=== PATIENT | female | born 1995 | race Caucasian/White ===

== ENCOUNTER 2023-06-08 14:14 | Emergency (ER) | payer OTHER, SELFPAY ==
[2023-06-08 14:18] VITALS: BP 117/77
[2023-06-08 14:33] LABS: % Basophils 0.9 % (0-2); % Eosinophils 1.1 % (0-6); % Immature Granulocytes 0.1 % (0-0.5); % Lymphocytes 29.2 % (20.5-51.1); % Monocytes 6.2 % (1.7-9.3); % Neutrophils 62.5 % (42.2-75.2); Absolute Basophils 0.1 10^3/uL (0-0.2); Absolute Eosinophils 0.1 10^3/uL (0-0.7); Absolute Lymphocytes 2.5 10^3/uL (1.2-3.4); Absolute Monocytes 0.5 10^3/uL (0.1-0.6); Absolute Neutrophils 5.3 10^3/uL (1.4-6.5); Hematocrit 37.3 % (37.0-47.0); Hemoglobin 12.6 g/dL (12.0-16.0); Mean Corp Hgb Conc. 33.8 g/dL (33.0-37.0); Mean Corpuscular Hgb 27.8 pg (27.0-31.0); Mean Corpuscular Volume 82.3 fL (81.0-99.0); Mean Platelet Volume 11.7 fL (7.4-10.4); Nucleated Red Blood Cells % 0 %; Platelet Count 280 10^3/uL (130-400); Red Blood Cell Count 4.53 10^6/uL (4.20-5.40); Red Cell Dist. Width 12.7 % (11.5-14.5); White Blood Cell Count 8.6 10^3/uL (4.8-10.8)
[2023-06-08 14:40] LABS: Urine Albumin Trace (Neg - Trace); Urine Bilirubin Negative (Negative); Urine Character Clear (Clear); Urine Color Yellow; Urine Glucose Negative (Negative); Urine Ketone Negative (Negative); Urine Leukocyte Trace (Negative); Urine Nitrite Negative (Negative); Urine Occult Blood 2+ (Negative); Urine Specific Gravity 1.015 (<1.030); Urine Urobilinogen Negative (Neg - 1+)
[2023-06-08 14:45] LABS: Urine Mucus Few
[2023-06-08 14:46] LABS: HCG, Serum Qualitative Screen Negative
[2023-06-08 14:46] LABS: Urine Bacteria Few (Negative)
[2023-06-08 15:04] LABS: ALT (SGPT) 15 U/L (0-35); AST (SGOT) 24 U/L (14-36); Albumin 4.5 g/dl (3.5-5.0); Alkaline Phosphatase 58 U/L (38-126); Blood Urea Nitrogen 10 mg/dl (7-17); Calcium 9.6 mg/dl (8.4-10.2); Carbon Dioxide 24 mmol/L (22-30); Chloride 106 mmol/L (98-107); Glucose 84 mg/dl (70-99); Potassium 3.8 mmol/L (3.5-5.1); Sodium 135 mmol/L (135-145); Total Bilirubin 0.4 mg/dl (0.2-1.3); Total Protein 6.9 g/dl (6.3-8.2); eGFR > 60.00
[2023-06-08] MEDS: ZOFRAN 4 MG IV (16:33)
[2023-06-08] MEDS: TORADOL 15 MG IV (16:33)
--- NOTE | 2023-06-08 16:51 | ED.GENMED ---
History of Present Illness
General
Chief Complaint: Flank Pain
Time Seen by Provider: 06/08/23 16:11
Travel History
Have you had any contact with someone who has COVID-19?: No
Do you have any symptoms of coronavirus? Fever > 100 degrees, chills, cough, shortness of breath, sore throat, loss of taste or smell, muscle aches, or headache?: No
History of Present Illness
History of Present Illness:
27-year-old female with history of recurrent kidney stones presents to the emergency department for evaluation of right flank pain that began this morning. Pain was initially in the right flank however now it is focal to the right suprapubic space,
currently rated 1 out of 10. States that the pain improved without medications. No fevers or chills. Denies any urinary tract voiding symptoms. No hematuria. Denies any nausea or vomiting. Has required ureteral stenting once in the past
Past History
Past History
ED Past Medical History: Other (recurrent UTIs) and Other (scoliosis)
ED Past Surgical History: Urological (cystopscopy)
Social History
Tobacco: Former smoker
Alcohol: Occasional
Drug: None
Personal: Single
Family History
Family History: Negative Diabetes, Hypertension or CAD
Review of Systems
Review of Systems
Allergies reviewed?: Yes
All Other Systems: ROS reviewed and negative except as documented in HPI and ROS
Phy Exam
Physical Exam
Physical Exam:
GEN: Well appearing, NAD, WDWN
HEENT: Oral mucosa moist, no scleral icterus
Cardiac: Regular rate
Lung: No respiratory distress, no tachypnea
MSK: No gross deformity or injuries
Skin: Good color, no pallor or jaundice, no rashes
Neuro: AO x3, moves all extremities freely
Psych: Calm, cooperative
Course
Orders/Labs/Results
Orders:
Orders
06/08/23 14:22
Test Result ONCE
06/08/23 14:25
CT Abd/pel Without Iv Or Oral Urgent
Comment:
Reason For Exam: right flank pain hx stone
Complete Blood Count/With Diff Urgent
Comprehensive Metabolic Panel Urgent
HCG, Serum Qualitative Screen Urgent
06/08/23 14:29
Urinalysis Reflex To Culture Urgent
Date Specimen was Collected: 06/08/23
Time Specimen was Collected: 14:22
Urine Microscopic Reflex Cult Urgent
06/08/23 16:16
Ketorolac [Toradol] 15 mg IV NOW STA
06/08/23 16:17
Ondansetron Injectable [Zofran] 4 mg IV NOW STA
Abnormal Lab Results
06/08/23 06/08/23
14:25 14:29
MPV 11.7 H fL
(7.4-10.4)
Ur Occult Blood Reflex 2+ A
(Negative)
Leukocyte Esterase Rfl Trace A
(Negative)
Urine RBC 11-15 A /HPF
(0-2)
Urine Bacteria (Reflex) Few A
(Negative)
06/08/23 14:25
06/08/23 14:25
Vital Signs
Initial and Last Documented VS:
Initial Vital Signs
Temp Pulse Resp BP Pulse Ox
98.0 F 70 16 117/77 98
06/08/23 14:18 06/08/23 14:18 06/08/23 14:18 06/08/23 14:18 06/08/23 14:18
Last Documented Vital Signs
Temp Pulse Resp BP Pulse Ox
98.0 F 68 16 126/74 98
06/08/23 14:18 06/08/23 17:05 06/08/23 17:05 06/08/23 17:05 06/08/23 17:05
MDM/Problems Addressed
MDM/Problems Addressed:
Patient's symptoms are well-controlled at this time. Urinalysis not consistent with UTI. Although the stone is quite proximal it is only 5 mm in size and given her well-controlled pain and young age she is reasonable for expectant management.
Discussed supportive care and return parameters, outpatient urology follow-up advised
*Critical Care Note
Total Time (30-74mins, 75-104mins- exclusive of procedures): Not Applicable
ED Attending Note
-
Portions of this chart may have been created with voice recognition software.� Occasional wrong word or��sound alike� substitutions may have occurred due to the inherent limitations of voice recognition software.
Discharge Plan
Departure
Patient Disposition: Home (Routine Discharge)
Date of Disposition: 06/08/23
Time of Disposition: 16:51
Patient with high blood pressure during this ER visit?: No
Discharge Problem:
Ureterolithiasis
Instructions: Kidney Stones (DC)
Prescriptions:
New
ketorolac 10 mg tablet
10 mg PO Q6H 5 Days Qty: 20 0RF
Rx Instructions:
maximum total duration of 5 days from all oral, intranasal, or parenteral formulations
tamsulosin [Flomax] 0.4 mg capsule
0.4 mg PO DAILY Qty: 14 0RF
oxycodone 5 mg tablet
5 mg PO TID PRN (Reason: severe pain) Qty: 8 0RF
No Action
diphenhydramine HCl [Benadryl] 25 MG capsule
25 mg PO Q4H Qty: 30 0RF
prednisone 20 MG tablet
40 mg PO DAILY Qty: 10 0RF
epinephrine [EpiPen 2-Jordan] 0.3 MG/0.3 ML auto-injector
0.3 mg IM PRN PRN (Reason: lip swelling) Qty: 0 0RF
Referrals:
Leif Raman MD [Active] -
Activity Restrictions/Additional Instructions:
Return to the ER if your pain worsens OR if you develop a fever
Interventions
Interventions:
*Risk Screen - Suicide Last Done: 06/08/23 17:06
*General Assessment Last Done: 06/08/23 17:06
*Neglect/Abuse Screening Last Done: 06/08/23 17:06
ED- Fall Risk Assessment Last Done: 06/08/23 17:06
*ED COVID-19 Vaccine History Last Done: 06/08/23 14:18
*Nursing Disposition Last Done: 06/08/23 17:06
SI-Ihjzua-Rtnabjxgdd Assessment Last Done: 06/08/23 16:17
ED-Female Genitourinary Assessment Last Done: 06/08/23 16:17
Discharge Date and Time
Discharge Date/Time: 06/08/23 17:06
Print Language: AZERBAIJANI
[2023-06-08 17:05] VITALS: BP 126/74
== END 2023-06-08 17:06 | disposition home or self-care (01) ==
LOC: EMR 14:14
PROVIDERS: Emergency Medicine; EMERGENCY PHYSICIAN Emergency Medicine
DX: N20.1 Calculus of ureter (principal); Z87.891 Personal history of nicotine dependence; Z87.442 Personal history of urinary calculi
CPT/HCPCS: 99284; 96374; 96375; 74176; 80053; 81003; 81015; 84703; 85025

== ENCOUNTER 2023-06-13 20:05 | Observation (INO) | payer OTHER, SELFPAY ==
[2023-06-13 15:59] VITALS: BP 129/83
[2023-06-13 16:21] LABS: % Basophils 0.5 % (0-2); % Eosinophils 0.7 % (0-6); % Immature Granulocytes 0.4 % (0-0.5); % Lymphocytes 12.4 % (20.5-51.1); % Monocytes 7.6 % (1.7-9.3); % Neutrophils 78.4 % (42.2-75.2); Absolute Basophils 0.1 10^3/uL (0-0.2); Absolute Eosinophils 0.1 10^3/uL (0-0.7); Absolute Immature Granulocytes 0.1 10^3/uL (0-0.05); Absolute Lymphocytes 1.6 10^3/uL (1.2-3.4); Hematocrit 40.6 % (37.0-47.0); Hemoglobin 13.5 g/dL (12.0-16.0); Mean Corp Hgb Conc. 33.3 g/dL (33.0-37.0); Mean Corpuscular Hgb 27.8 pg (27.0-31.0); Mean Corpuscular Volume 83.7 fL (81.0-99.0); Mean Platelet Volume 11.5 fL (7.4-10.4); Nucleated Red Blood Cells % 0 %; Platelet Count 228 10^3/uL (130-400); Red Blood Cell Count 4.85 10^6/uL (4.20-5.40); Red Cell Dist. Width 12.8 % (11.5-14.5); White Blood Cell Count 12.8 10^3/uL (4.8-10.8)
[2023-06-13 16:28] LABS: Urine Albumin Trace (Neg - Trace); Urine Bilirubin Negative (Negative); Urine Character Very Cloudy (Clear); Urine Color Yellow; Urine Glucose Negative (Negative); Urine Ketone Trace (Negative); Urine Leukocyte 1+ (Negative); Urine Nitrite Negative (Negative); Urine Occult Blood 2+ (Negative); Urine Urobilinogen Negative (Neg - 1+)
[2023-06-13 16:37] LABS: ALT (SGPT) 13 U/L (0-35); AST (SGOT) 22 U/L (14-36); Albumin 4.4 g/dl (3.5-5.0); Alkaline Phosphatase 64 U/L (38-126); Blood Urea Nitrogen 21 mg/dl (7-17); Calcium 9.9 mg/dl (8.4-10.2); Carbon Dioxide 21 mmol/L (22-30); Chloride 104 mmol/L (98-107); Glucose 104 mg/dl (70-99); Sodium 135 mmol/L (135-145); Total Bilirubin 0.7 mg/dl (0.2-1.3); Total Protein 6.9 g/dl (6.3-8.2); eGFR 57.44
[2023-06-13 16:39] LABS: Urine Bacteria Many (Negative); Urine Squamous Cell >30 /LPF (Few)
[2023-06-13 16:40] LABS: Urine Red Blood Cell 0-2 /HPF (0-2)
--- NOTE | 2023-06-13 17:30 | ED.GENMED ---
History of Present Illness
General
Chief Complaint: Abdominal Symptoms
Source: patient
Time Seen by Provider: 06/13/23 17:11
Travel History
Have you had any contact with someone who has COVID-19?: No
Do you have any symptoms of coronavirus? Fever > 100 degrees, chills, cough, shortness of breath, sore throat, loss of taste or smell, muscle aches, or headache?: No
History of Present Illness
History of Present Illness:
27-year-old female with past medical history of frequent urinary tract infections, anxiety/depression, recently diagnosed with a 5 mm right UPJ stone this past Thursday stating that pain had been initially improved throughout the week but this morning
upon awakening had significant recurrence of pain which persisted despite oxycodone, Flomax and p.o. Toradol. Patient's last dose of medicine was around 3 PM with no relief. She notes continued nausea. She denies any fevers, chills, rigors. She
still notes associated hematuria. She does note a previous kidney stent that was placed at [facility] few years ago. She has no other concerns at this time.
Past History
Past History
ED Past Medical History: Psychiatric, Other (recurrent UTIs) and Other (scoliosis)
ED Past Surgical History: Urological (cystopscopy)
Social History
Tobacco: Former smoker
Alcohol: Occasional
Drug: None
Personal: Single
Living: with family
Family History
Family History: Negative Diabetes, Hypertension or CAD
Review of Systems
Review of Systems
All Other Systems: ROS reviewed and negative except as documented in HPI and ROS
Phy Exam
Physical Exam
Physical Exam:
GENERAL: Alert , appears quite uncomfortable
EYE: clear conjunctiva b/l
HEAD: NCAT
ENT: o/p clr, mmm.
CARDIAC: Regular rate and rhythm .
LUNGS: Clear breath sounds bilaterally, no acute respiratory distress, no wheezes/rales/rhonchi
ABDOMEN: Soft, without focal tenderness, no r/g, moderate right CVA tenderness, negative Faye sign, no tenderness at McBurney's point
NEUROLOGICAL: Alert and oriented x 3
SKIN: Warm and dry, skin intact.
MUSCULOSKELETAL: well perfused.
PSYCH: Normal and appropriate interaction.
Scores
Heart Failure Risk
Heart Failure Risk Score: Not Applicable
Heart Score for Chest Pain Patients
STEMI patient?: Not applicable
Withdrawal Assessment of Alcohol
Withdrawal Assessment Completed?: Not applicable
Course
Orders/Labs/Results
Orders:
Orders
06/13/23 16:12
Complete Blood Count/With Diff Urgent
Comprehensive Metabolic Panel Urgent
HCG, Serum Qualitative Screen Urgent
Comment: ADD ON
Urinalysis Reflex To Culture Urgent
Date Specimen was Collected: 06/13/23
Time Specimen was Collected: 16:02
Urine Microscopic Reflex Cult Urgent
Urine Culture Urgent
YIFAN Source: U
Specimen Description:
Date Specimen was Collected: 06/13/23
Time Specimen was Collected: 16:02
06/13/23 17:12
CR Abdomen - 1 View Urgent
Comment:
Reason For Exam: right flank pain, known 5mm UPJ stone thursday
06/13/23 17:24
0.9% Sodium Chloride 1000 ml [Nss] 1,000 ml IV BOLUS
Morphine Sulfate 4 mg IV NOW STA
Ondansetron Injectable [Zofran] 4 mg IV NOW STA
06/13/23 18:22
Ondansetron Orally Disint [Zofran Odt (Orally Disintegrating)] 4 mg PO NOW STA
Oxycodone [Roxicodone] 5 mg PO NOW STA
06/13/23 18:29
Add On- LAB Urgent
Tests Added?: HCG
Abnormal Lab Results
06/13/23
16:12
WBC 12.8 H 10^3/uL
(4.8-10.8)
MPV 11.5 H fL
(7.4-10.4)
Abs Immat Gran (auto) 0.1 H 10^3/uL
(0-0.05)
Absolute Neuts (auto) 10.0 H 10^3/uL
(1.4-6.5)
Absolute Monos (auto) 1.0 H 10^3/uL
(0.1-0.6)
Neutrophils % 78.4 H %
(42.2-75.2)
Lymphocytes % 12.4 L %
(20.5-51.1)
Carbon Dioxide 21 L mmol/L
(22-30)
BUN 21 H mg/dl
(7-17)
Creatinine 1.3 H mg/dL
(0.6-1.0)
Glucose 104 H mg/dl
(70-99)
Urine Ketones Trace A
(Negative)
Ur Occult Blood Reflex 2+ A
(Negative)
Leukocyte Esterase Rfl 1+ A
(Negative)
Urine WBC (Reflex) 11-15 A /HPF
(0-5)
Urine Bacteria (Reflex) Many A
(Negative)
06/13/23 16:12
06/13/23 16:12
Vital Signs
Initial and Last Documented VS:
Initial Vital Signs
Temp Pulse Resp BP Pulse Ox
97.9 F 74 18 129/83 99
06/13/23 15:59 06/13/23 15:59 06/13/23 15:59 06/13/23 15:59 06/13/23 15:59
Last Documented Vital Signs
Temp Pulse Resp BP Pulse Ox
97.9 F 74 18 129/83 99
06/13/23 15:59 06/13/23 15:59 06/13/23 15:59 06/13/23 15:59 06/13/23 15:59
MDM/Problems Addressed
Differential Diagnosis Includes:
Recurring renal/ureteral colic, cystitis/pyelonephritis, acute kidney injury
MDM/Problems Addressed:
27-year-old female with already known right-sided ureteral stone presenting back to the emergency department due to recurrence of pain. Attempted medications that were prescribed to her but without any relief. Arrives to the emergency department
still with significant pain. She has a leukocytosis and a mild acute kidney injury. Urine shows no sign of infection. Will obtain a x-ray of the abdomen to see if stone has moved at all. Pain control with morphine as I am unable to give Toradol
as patient already took oral dose of this just prior to arrival. Will discuss with urology for further treatment plan.
*Radiology
Radiology exam reviewed: radiology read reviewed
*Pulse Oximetry
Patient hypoxic: no
*Critical Care Note
Total Time (30-74mins, 75-104mins- exclusive of procedures): Not Applicable
Data Reviewed
Review of Other/Old Records Reveals: Labs, Records and Radiology Studies
Patient Management
Discussion with other providers: County Director Welfare
Escalation/DeEscalation of care consider admission/obs:
Case was discussed with on-call urologist, Dr. Velazquez, who will take the patient to the OR tomorrow. Plan to keep n.p.o. after midnight. House nurse practitioner to admit patient to urology service. Of note, nursing team is having trouble getting
patient's IV. Medications were ordered for p.o. to help with patient's symptoms.
ED Attending Note
-
Portions of this chart may have been created with voice recognition software.� Occasional wrong word or��sound alike� substitutions may have occurred due to the inherent limitations of voice recognition software.
Discharge Plan
Departure
Patient Disposition: Admit
Date of Disposition: 06/13/23
Time of Disposition: 19:07
Presentation/result/management discussed w/ accepting MD/DO: Caroline
Discharge Problem:
Right ureteral calculus, SUZI (acute kidney injury)
Prescriptions:
No Action
diphenhydramine HCl [Benadryl] 25 MG capsule
25 mg PO Q4H Qty: 30 0RF
prednisone 20 MG tablet
40 mg PO DAILY Qty: 10 0RF
epinephrine [EpiPen 2-Jordan] 0.3 MG/0.3 ML auto-injector
0.3 mg IM PRN PRN (Reason: lip swelling) Qty: 0 0RF
ketorolac 10 mg tablet
10 mg PO Q6H 5 Days Qty: 20 0RF
Rx Instructions:
maximum total duration of 5 days from all oral, intranasal, or parenteral formulations
tamsulosin [Flomax] 0.4 mg capsule
0.4 mg PO DAILY Qty: 14 0RF
oxycodone 5 mg tablet
5 mg PO TID PRN (Reason: severe pain) Qty: 8 0RF
Referrals:
UNKNOWN - PT DOES,NOT KNOW [Unknown Provider] -
Interventions
Interventions:
*Neglect/Abuse Screening Last Done: 06/13/23 18:23
*ED COVID-19 Vaccine History Last Done: 06/13/23 16:01
JI-Gpnble-Qrqzwlejjm Assessment Last Done: 06/13/23 18:23
Discharge Date and Time
Print Language: SYRIAC
[2023-06-13] MEDS: ZOFRAN ODT (ORALLY DISINTEGRATING) 4 MG PO (18:27)
[2023-06-13] MEDS: ROXICODONE 5 MG PO (18:27)
[2023-06-13 18:28] LABS: Potassium 3.8 mmol/L (3.5-5.1)
[2023-06-13 18:59] LABS: HCG, Serum Qualitative Screen Negative
--- NOTE | 2023-06-13 19:47 | HPS.HSE ---
Family Physician
-
Family Physician: * NONE
Chief Complaint
-
right flank pain
History of Present Illness
27-year-old female with PMH of UTI, kidney stones s/p right stent few years ago at [facility], anxiety/depression, recently diagnosed with a 5 mm calculus at the right ureteropelvic junction with moderate right hydronephrosis this past Thursday.
Patient states pain has been improving initially but this morning upon awakening had significant recurrence of pain which persisted despite oxycodone, Flomax and Toradol. Patient's last dose of medicine was around 3 PM with no relief. Patient
admits to hematuria and nausea. Denies fever, chills and rigors. She has no other concerns at this time.
Medical History
Past Medical History
Past Medical History: Reports Other (UTI kidney stone s/p stents)
Additional Past Medical History:
kidney stones s/p Right stent
Anxiety/Depression
Past Surgical History: Reports None
Additional Past Surgical History:
Right kidney stent
Social History
Tobacco: Former Smoker
Alcohol: Occasional
Drug: None
Personal: Single
Living: With Family
Family History
Family History: Not pertinent
Allergies / Home Medications
Allergies reflects when Allergies were last updated in [facility].
Home Medications with original date entered in [facility]
Allergy/Medication List:
lithium
Penicillin
Review of Systems
-
History Source: Patient
A 12 point ROS was completed and negative except as noted: Yes
: Reports Flank Pain (right)
Physical Exam
Vital Signs
Vital Signs
Temp Pulse Resp BP Pulse Ox
97.9 F 74 18 129/83 99
06/13/23 15:59 06/13/23 15:59 06/13/23 15:59 06/13/23 15:59 06/13/23 15:59
Physical Exam
General: Well Developed and Well Nourished
HEENT: NormoCephalic
Respiratory: Clear
Cardiac: S1/S2 and Regular Rhythm
Breast: Deferred by me
GI: Soft and Tender (right flank)
Rectal: Deferred by Provider
Genito-urinary: Deferred by me
Musculoskeletal: No Edema
Skin: Warm and Dry
Neuro: Awake, Alert, Oriented and AO x 3
Psych: Calm
Laboratory Results
-
06/13/23 16:12
06/13/23 16:12
Laboratory Results
Total Bilirubin 0.7 mg/dl (0.2-1.3) 06/13/23 16:12
AST 22 U/L (14-36) 06/13/23 16:12
ALT 13 U/L (0-35) 06/13/23 16:12
Alkaline Phosphatase 64 U/L (38-126) 06/13/23 16:12
Impression/Plan
-
IMPRESSION:
27-year-old female with 5 mm calculus at the right ureteropelvic junction with moderate right hydronephrosis come back with increased pain and now with SUZI. Admit to Urology for OR tomorrow.
PLAN:
Admit to Urology service Dr. Velazquez
#SUZI
Continue IVF
#Right 5mm kidney stone
pain control - morphine 2mg IV moderate to severe
nausea - zonfran 4mg po q2hr prn
Flomax 0.4 mg po qd
NPO after midnight for procedure
#Depression/Anxiety
Continue Prozac 20mg po qd
#DVT Proph
Heparin subQ q12hr
Full code
[2023-06-13 23:06] VITALS: BP 99/59
[2023-06-13] MEDS: MORPHINE SULFATE 2 MG IV (23:18)
[2023-06-14] VITALS (8 sets, daily range): BP systolic 102–121; BP diastolic 51–80
[2023-06-14] MEDS: NSS 1000 IV (01:17)
[2023-06-14] MEDS: MORPHINE SULFATE 2 MG IV ×2 (03:31→08:08)
[2023-06-14] MEDS: PROZAC 20 MG PO (08:09)
[2023-06-14] MEDS: FLOMAX 0.400000000000000022 MG PO (08:09)
--- NOTE | 2023-06-14 09:37 | W.PN.UPDATE ---
Update Note
Progress Note Update
Patient has ongoing right renal colic
Discussed plans for ureteroscopic stone manipulation with possible laser lithotripsy and placement of right JJ stent with patient and mother
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
Risk of bladder injury, ureteral perforation, bleeding and infection were reviewed. Written and verbal consent were provided by the patient
--- NOTE | 2023-06-14 11:03 | W.IMMPOSTOP ---
Surgical Immed Post Op Note
-
Primary Surgeon: Caroline
Assisting Surgeon: None
Pre-op Diagnosis: Right ureteral calculus, right hydronephrosis, right renal colic
Post-op Diagnosis: Same
Procedure Performed: Right ureteroscopic laser lithotripsy with stone extraction and placement of right JJ stent: 4.8 Fr 24 cm
Anesthesia Type: GET
Specimen / Cultures: Stone fragment for chemical anlysis
Estimated Blood Loss: None
Complications: None
[2023-06-14] MEDS: Pyridium 200 MG PO (11:46)
[2023-06-14] MEDS: ROXICODONE 5 MG PO (11:57)
[2023-06-17 15:33] LABS: Stone Analysis Mass 18 mg
== END 2023-06-14 12:00 | disposition home or self-care (01) ==
LOC: ED 20:05
PROVIDERS: Emergency Medicine; ADMITTING PHYSICIAN Specialist; EMERGENCY PHYSICIAN Emergency Medicine
DX: N13.2 Hydronephrosis with renal and ureteral calculous obstruction (principal); N17.9 Acute kidney failure, unspecified; R10.9 Unspecified abdominal pain; R11.0 Nausea; F32.A Depression, unspecified; F41.9 Anxiety disorder, unspecified; Z87.891 Personal history of nicotine dependence; Z96.0 Presence of urogenital implants; Z87.440 Personal history of urinary (tract) infections; Z87.442 Personal history of urinary calculi
CPT/HCPCS: 52356; 74018; 74420; 76000; 80053; 81003; 81015; 82365; 84703; 85025; 87086; 96374; 99284; C1894; C2617; G0378

== ENCOUNTER 2024-02-05 15:08 | Emergency (ER) | payer OTHER, SELFPAY ==
[2024-02-05 15:11] VITALS: BP 132/95
--- NOTE | 2024-02-05 16:43 | ED.GENMED ---
History of Present Illness
General
Chief Complaint: Head Injury
Source: patient
Exam Limitations: none
Time Seen by Provider: 02/05/24 16:26
Nursing documentation reviewed up to this point in time: agreed with
History of Present Illness
History of Present Illness:
pt is a 28 y/o F with h/o rolandochon beckford
says she slipped and fell on hard wood 4 days ago when trying to hold her dog back and landed on her knees and R hip
she did not strike her head
she felt fine that day
the following day woke up with frontal headache, photophobia, nauesa, lifhtheadedness and presumed she had a concussion
she has had a concussion previously but ithat time was worse
she has not tried any medications for headache
she went to work today and had to leave becuase she had trouble focusing on the computer.
she has not had any neck pain, weakness, numbness, double vision, vomiting
no AC
lmp last week
Past History
Past History
ED Past Medical History: Psychiatric, Other (recurrent UTIs) and Other (scoliosis)
ED Past Surgical History: Urological (cystopscopy)
Social History
Tobacco: Former smoker
Alcohol: Occasional
Drug: None
Personal: Single
Living: with family
Family History
Family History: Negative Diabetes, Hypertension or CAD
Review of Systems
Review of Systems
Allergies reviewed?: Yes
All Other Systems: Not applicable
Phy Exam
Physical Exam
Physical Exam:
GENERAL: Alert , in no apparent distress
HEAD: NCAT
NECK: no midline tenderness, active ROM intact, no paraspinal muscle tenderness;
EYE: pupils equal and reactive, EOMs intact.
ENT: o/p clr, mmm. no hemotympanum
CARDIAC: Regular rate and rhythm, no edema
LUNGS: Clear breath sounds bilaterally, no acute respiratory distress, no wheezes/rales/rhonchi
ABDOMEN: Soft, without focal tenderness, no r/g, no cvat
NEUROLOGICAL: Alert and oriented, no focal neuro deficits, CN intact, 5/5 strength, sensation intact
SKIN: Warm and dry,
MUSCULOSKELETAL: No edema, well perfused.
PSYCH: Normal and appropriate interaction.
Course
Orders/Labs/Results
Orders:
Orders
02/05/24 15:[address] [CT Head W/o Iv Contrast] Urgent
Comment:
Reason For Exam: possible head trauma
Vital Signs
Initial and Last Documented VS:
Initial Vital Signs
Temp Pulse Resp BP Pulse Ox
36.6 C 72 16 132/95 98
02/05/24 15:11 02/05/24 15:11 02/05/24 15:11 02/05/24 15:11 02/05/24 15:11
Last Documented Vital Signs
Temp Pulse Resp BP Pulse Ox
36.6 C 72 16 132/95 98
02/05/24 15:11 02/05/24 15:11 02/05/24 15:11 02/05/24 15:11 02/05/24 15:11
MDM/Problems Addressed
Differential Diagnosis Includes:
concussion, migraine, headahce
MDM/Problems Addressed:
28 y/o F
rolando danlos chronic extremity pain
here with headache
she fellt he following day before but didn't hit her head, fall from standing, but without heads trike
sypmtoms are headahce, nausea, lightheadedness, photosensitivity
similar to concussion but also migraine
pt had to leave work today becuase computer was bothering her
she has not tried any meds
her exam is normal
she has no photophobia for my exam
neuro intact
no head truama
ct head neg
suspect pt has migraine/headache
low suspicion for concussion but will give 2 days brain rest, NSAIDS.
*Critical Care Note
Total Time (30-74mins, 75-104mins- exclusive of procedures): Not Applicable
ED Attending Note
-
Portions of this chart may have been created with voice recognition software.� Occasional wrong word or��sound alike� substitutions may have occurred due to the inherent limitations of voice recognition software.
Discharge Plan
Departure
Patient Disposition: Home (Routine Discharge)
Date of Disposition: 02/05/24
Time of Disposition: 16:49
Patient with high blood pressure during this ER visit?: No
Condition: Fair
Covid-19: Not Applicable
Discharge Problem:
Headache
Instructions: Headache, Adult ED
Prescriptions:
No Action
ketorolac 10 mg tablet
10 mg PO Q6H 5 Days Qty: 20 0RF
Rx Instructions:
maximum total duration of 5 days from all oral, intranasal, or parenteral formulations
tamsulosin [Flomax] 0.4 mg capsule
0.4 mg PO DAILY Qty: 14 0RF
oxycodone 5 mg tablet
5 mg PO TID PRN (Reason: severe pain) Qty: 8 0RF
fluoxetine 20 mg capsule
20 mg PO DAILY
Referrals:
UNKNOWN - PT DOES,NOT KNOW [Family Provider] -
Stand Alone Forms: Return to Work
Activity Restrictions/Additional Instructions:
YOUR CAT SCAN WAS NORMAL
YOU MAY HAVE A MIGRAINE OR POSSIBLY POST CONCUSSIVE SYNDROME
TRY MOTRIN 600 MG 2-3 TIMES A DAY WITH FOOD FOR 2-4 DAYS TO SEE IF THIS HELP
LIMIT PHONE, TV, READING, COMPUTER FOR 2 DAYS, THEN RETURN TO NORMAL ACTIIVTY.
FOLLOW UP WITH YUOR DOCTOR NEXT WEEK FOR CONTINUED SYMPTOMS
STAY HOME FROM WORK FOR 2 DAYS
RETURN FOR: SEVERE SUDDEN WORST HEADACHE, VOMITING, WEAKNESSS, VISION CHANGES ET.C
Interventions
Interventions:
*Risk Screen - Suicide Last Done: 02/05/24 15:11
*Neglect/Abuse Screening Last Done: 02/05/24 15:11
Discharge Date and Time
Print Language: IRANIAN
== END 2024-02-05 17:00 | disposition home or self-care (01) ==
LOC: EMR 15:08
PROVIDERS: EMERGENCY PHYSICIAN Student in an Organized Health Care Education/Training Program
DX: R51.9 Headache, unspecified (principal); Q79.60 Ehlers-Danlos syndrome, unspecified; Z87.440 Personal history of urinary (tract) infections; Z87.891 Personal history of nicotine dependence
CPT/HCPCS: 99284; 70450

== ENCOUNTER 2024-10-23 15:55 | Emergency (ER) | payer OTHER, SELFPAY ==
[2024-10-23 16:07] VITALS: BMI 22.8
[2024-10-23 16:30] LABS: Hematocrit 36.1 % (37.0-47.0); Hemoglobin 12.0 g/dL (12.0-16.0); Mean Corp Hgb Conc. 33.2 g/dL (33.0-37.0); Mean Corpuscular Volume 82.4 fL (81.0-99.0); Nucleated Red Blood Cells % 0 %; Platelet Count 190 10^3/uL (130-400); Red Cell Dist. Width 13.2 % (11.5-14.5)
[2024-10-23 16:45] LABS: HCG, Serum Qualitative Screen Negative
[2024-10-23 16:50] LABS: ALT (SGPT) 14 U/L (0-35); AST (SGOT) 20 U/L (14-36); Albumin 4.8 g/dl (3.5-5.0); Alkaline Phosphatase 58 U/L (38-126); Blood Urea Nitrogen 8 mg/dl (7-17); Calcium 9.8 mg/dl (8.4-10.2); Carbon Dioxide 21 mmol/L (22-30); Chloride 107 mmol/L (98-107); Estimated Creatinine Clearance 97 ml/min; Glucose 91 mg/dl (70-99); Lipase 97 U/L (23-300); Potassium 4.0 mmol/L (3.5-5.1); Sodium 136 mmol/L (135-145); Total Protein 7.2 g/dl (6.3-8.2); eGFR > 60.00
[2024-10-23 17:56] VITALS: BP 120/74
[2024-10-23 18:00] VITALS: BP 121/77
[2024-10-23 18:14] LABS: Urine Character Clear (Clear)
[2024-10-23 19:00] VITALS: BP 132/95
[2024-10-23] MEDS: OMNIPAQUE 50 ML PO (19:23)
[2024-10-23] MEDS: TORADOL 30 MG IV (19:24)
[2024-10-23] MEDS: ZOFRAN 4 MG IV (19:24)
--- NOTE | 2024-10-23 19:41 | ED.GENMED ---
History of Present Illness
General
Chief Complaint: Abdominal Symptoms
Source: patient
Time Seen by Provider: 10/23/24 18:28
History of Present Illness
History of Present Illness:
29-year-old female with past medical history of previous kidney infection/kidney stones status post 2 kidney stents presenting to the ER for evaluation of abdominal pain that began on Thursday described to be generalized throughout the lower abdomen
and moving upwards through her umbilicus into the epigastrium, constant, dull aching sensation accompanied with nausea and 1 episode of loose stool around 5 AM this morning. Patient states today she has not had much of an appetite either. Denies
any history of similar. She did attempt some Tylenol earlier with no relief. Denies any fevers, chills, rigors, urinary symptoms, chest pain or shortness of breath. Social history noncontributory. No known sick contacts or antibiotics. She does
state this feels different than her previous kidney stones/kidney infection.
Past History
Past History
ED Past Medical History: Psychiatric, Other (recurrent UTIs) and Other (scoliosis)
ED Past Surgical History: Urological (cystopscopy)
Social History
Tobacco: Former smoker
Alcohol: Occasional
Drug: None
Personal: Single
Living: with family
Family History
Family History: Negative Diabetes, Hypertension or CAD
Review of Systems
Review of Systems
All Other Systems: ROS reviewed and negative except as documented in HPI and ROS
Phy Exam
Physical Exam
Physical Exam:
GENERAL: Alert , in no apparent distress at rest but uncomfortable during the abdominal exam portion
EYE: clear conjunctiva b/l
HEAD: NCAT
ENT: o/p clr, mmm.
CARDIAC: Regular rate and rhythm .
LUNGS: Clear breath sounds bilaterally, no acute respiratory distress, no wheezes/rales/rhonchi
ABDOMEN: Soft, tender around the umbilicus and diffuse lower abdomen , no r/g, no cvat, negative Faye sign
NEUROLOGICAL: Alert and oriented
SKIN: Warm and dry, skin intact.
MUSCULOSKELETAL: No edema, well perfused.
PSYCH: Normal and appropriate interaction.
Scores
Heart Failure Risk
Heart Failure Risk Score: Not Applicable
Heart Score for Chest Pain Patients
STEMI patient?: Not applicable
Withdrawal Assessment of Alcohol
Withdrawal Assessment Completed?: Not applicable
Course
Orders/Labs/Results
Orders:
Orders
10/23/24 16:07
Test Result ONCE
10/23/24 16:12
Complete Blood Count/With Diff Urgent
Comprehensive Metabolic Panel Urgent
HCG, Serum Qualitative Screen Urgent
Comment: Notify provider if positive test present
Lipase Urgent
10/23/24 18:00
Urinalysis Reflex To Culture Urgent
Date Specimen was Collected: 10/23/24
Time Specimen was Collected: 17:59
10/23/24 18:53
CT Abd/pel W Iv And Oral Contr Urgent
Comment:
Reason For Exam: generalized abd pain
Iohexol [Omnipaque] See Protocol PO NOW STA
Ketorolac [Toradol] 30 mg IV NOW STA
Ondansetron Injectable [Zofran] 4 mg IV NOW STA
10/23/24 22:05
US Pelvis Only (non-obstetric) Urgent
Comment:
Reason For Exam: right sided complex ovarian cyst
Abnormal Lab Results
10/23/24 10/23/24
16:12 18:00
Hct 36.1 L %
(37.0-47.0)
MPV 12.7 H fL
(7.4-10.4)
Absolute Lymphs (auto) 1.1 L 10^3/uL
(1.2-3.4)
Neutrophils % 75.8 H %
(42.2-75.2)
Lymphocytes % 16.5 L %
(20.5-51.1)
Carbon Dioxide 21 L mmol/L
(22-30)
Urine Ketones 3+ A
(Negative)
10/23/24 16:12
10/23/24 16:12
Vital Signs
Initial and Last Documented VS:
Initial Vital Signs
Temp Pulse Resp Pulse Ox
98.4 F 100 18 100
10/23/24 16:02 10/23/24 16:02 10/23/24 16:02 10/23/24 16:02
Last Documented Vital Signs
Temp Pulse Resp BP Pulse Ox
98.4 F 74 15 124/111 100
10/23/24 16:02 10/23/24 23:08 10/23/24 23:08 10/23/24 23:06 10/23/24 23:06
MDM/Problems Addressed
Differential Diagnosis Includes:
Appendicitis
GERD
Gastritis
Peptic ulcer disease
Colitis
Cholecystitis
Pancreatitis
Urinary tract infection
MDM/Problems Addressed:
29-year-old female presenting to the emergency department for evaluation of abdominal pain since Thursday accompanied with nausea and diminished p.o. intake. Labs and urine were initiated on arrival which are overall reassuring with no leukocytosis
noted, normal chemistry, negative test. Urinalysis was noted to have 3+ ketones which is likely from dehydration due to lack of p.o. intake. Will treat symptoms here with Toradol and Zofran as well as [address] scan of the
abdomen and pelvis ordered. Disposition pending.
*Radiology
Radiology exam reviewed: radiology read reviewed
*Pulse Oximetry
SaO2: 99
Oxygen Mode of Delivery: Room air
Patient hypoxic: no
*Critical Care Note
Total Time (30-74mins, 75-104mins- exclusive of procedures): Not Applicable
Comment
Comment:
CT scan findings noted for complex right ovarian cyst, possibly hemorrhagic. Recommend US for better eval. US ordered. Patient updated on findings. Symptoms improved.
Patient Management
Escalation/DeEscalation of care consider admission/obs:
Ultrasound shows a suspicion for recently ruptured hemorrhagic right ovarian cyst versus corpus luteal cyst. Cyst measures 2 x 1.6 cm. Patient's pain is much improved here. No concern for torsion. Patient feels comfortable being discharged home.
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 Aware of return precautions.
ED Attending Note
-
Portions of this chart may have been created with voice recognition software.� Occasional wrong word or��sound alike� substitutions may have occurred due to the inherent limitations of voice recognition software.
Discharge Plan
Departure
Patient Disposition: Home (Routine Discharge)
Date of Disposition: 10/24/24
Time of Disposition: 01:02
Patient with high blood pressure during this ER visit?: No
Discharge Problem:
Rupture of cyst of right ovary
Instructions: Ovarian cyst - ED discharge instructions
Prescriptions:
No Action
ketorolac 10 mg tablet
10 mg PO Q6H 5 Days Qty: 20 0RF
Rx Instructions:
maximum total duration of 5 days from all oral, intranasal, or parenteral formulations
tamsulosin [Flomax] 0.4 mg capsule
0.4 mg PO DAILY Qty: 14 0RF
oxycodone 5 mg tablet
5 mg PO TID PRN (Reason: severe pain) Qty: 8 0RF
fluoxetine 20 mg capsule
20 mg PO DAILY
Referrals:
Ivelisse Chapman DO [Active, Gynecology]
Mackenzie Hagen DO [Family Provider]
Interventions
Interventions:
*Risk Screen - Suicide Last Done: 10/23/24 16:02
BA-Ivouat-Uiaehsrhhx Assessment Last Done: 10/23/24 18:05
Discharge Date and Time
Print Language: S[place]FR[place]
[2024-10-23 23:06] VITALS: BP 124/111
== END 2024-10-24 01:28 | disposition home or self-care (01) ==
LOC: EMR 15:55
PROVIDERS: Emergency Medicine; EMERGENCY PHYSICIAN Student in an Organized Health Care Education/Training Program; FAMILY PHYSICIAN Family Medicine
DX: N83.291 Other ovarian cyst, right side (principal); K66.1 Hemoperitoneum; E86.0 Dehydration; M41.9 Scoliosis, unspecified; Z87.891 Personal history of nicotine dependence
CPT/HCPCS: 99284; 96374; 96375; 74177; 76856; 80053; 81003; 83690; 84703; 85025; Q9967